=== PATIENT | female | born 1975 | race Caucasian/White ===

== ENCOUNTER 2017-03-25 13:02 | Emergency (ER) | payer OTHER ==
[2017-03-25] MEDS ORDERED: Ondansetron HCl/PF 4 MG/2 ML Vial ONE (15:53)
[2017-03-25] MEDS ORDERED: Acetaminophen 325 MG TAB ONE (15:53)
[2017-03-25 16:24] LABS: #Basophils 0.1 thou/uL (0.0-0.2); #Eosinphils 0.2 thou/uL (0.0-0.7); #Lymphocytes 3.6 thou/uL (1.20-3.40); #Monocytes 0.5 thou/uL (0.11-0.59); #Neutrophils 5.4 thou/uL (1.40-6.50); %Basophils 1.1 % (0.0-1.0); %Eosinophils 2.2 % (0.0-10.0); %Lymphocytes 36.6 % (21.0-51.0); %Monocytes 5.3 % (0.0-10.0); %Neutrophils 54.8 % (42.0-75.0); Hemoglobin 15.4 g/dL (12.0-16.0); Mean Corpuscular HGB CONC 33.4 g/dL (32.0-36.0); Mean Corpuscular Hemoglobin 32.3 pg (27.0-31.0); Mean Corpuscular Volume 96.7 fl (81.0-99.0); Mean Platelet Volume 7.1 fL (7.4-10.4); Platelet Count 278 thou/uL (130-400); RBC Distribution Width 11.6 % (11.5-14.5); Red Blood Cell (RBC) Count 4.75 mill/uL (4.20-5.40); White Blood Cell (WBC) Count 9.8 thou/uL (4.8-10.8)
[2017-03-25 16:34] LABS: Bilirubin Negative (Negative); Blood, Urine Negative (Negative); Clarity TURBID (Clear); Glucose, Urine (Dipstick) Negative (Negative); Leukocyte Moderate (Negative); Nitrite Positive (Negative); Protein, Urine (Dipstick) Negative (Neg-Trace); Specific Gravity, Urine 1.014 (1.002-1.036); pH, Urine 7.5 (5.0-9.0)
[2017-03-25 16:36] LABS: Bacteria/HPF 4+ HPF (None Seen); Hyaline Casts/LPF 0-3 HYALINE CAST LPF (0-3 Hyaline); Pathc Cast-AUWi Flag 0.27 (0-2.49); RBC/HPF 0-3 HPF (0-3)
[2017-03-25 16:47] LABS: ALT (SGPT) 11 U/L (8-55); AST (SGOT) 9 U/L (5-34); Albumin 4.2 g/dL (3.5-5.0); Alkaline Phosphatase 134 U/L (40-150); Anion Gap 15 mmol/L (10-20); BUN (Urea Nitrogen) 9 mg/dL (7.0-18.7); Bilirubin, Total 0.3 mg/dL (0.2-1.2); Calc. Creatinine Clearance 0 mL/min (70-130); Carbon Dioxide 26 mmol/L (22-29); Chloride 106 mmol/L (98-107); Estimated GFR-MDRD 80; Globulin 2.9 g/dL (2.4-3.5); Glucose 86 mg/dL (70-105); Potassium 3.6 mmol/L (3.5-5.1); Protein, Total 7.1 g/dL (6.0-8.3); Sodium 143 mmol/L (136-145)
[2017-03-25 17:23] LABS: Pregnancy Test - Urine (BHCG) Negative (Negative); Pregu Control Background? CLEAR/WHITE (CLR/WHITE); Pregu Control Bar Appear? YES (CONTROL BAR); Specific Gravity 1.014 (1.002-1.036)
[2017-03-25] MEDS ORDERED: cefTRIAXone\\ROCEPHIN 2 GM in Sodium Chloride 0.9% 100 ML IVPB SCH (17:30)
== END 2017-03-25 18:34 | disposition home or self-care (01) ==
LOC: ERS 13:02
DX: N39.0 Urinary tract infection, site not specified (principal); E66.9 Obesity, unspecified; J44.9 Chronic obstructive pulmonary disease, unspecified; G89.29 Other chronic pain; F17.210 Nicotine dependence, cigarettes, uncomplicated
CPT/HCPCS: 80053; 81003; 81015; 81025; 85025; 87077; 87086; 87186; 96361; 96365; 96375; J0696; J2405; J7050

== ENCOUNTER 2017-10-12 13:03 | Inpatient (IN) | payer OTHER ==
[2017-10-12] MEDS ORDERED: Naloxone HCl 0.4 mg/ml Vial ONE (13:09)
[2017-10-12 13:38] LABS: #Basophils 0.1 thou/uL (0.0-0.2); #Eosinphils 0.2 thou/uL (0.0-0.7); #Lymphocytes 2.9 thou/uL (1.20-3.40); #Monocytes 0.8 thou/uL (0.11-0.59); #Neutrophils 5.6 thou/uL (1.40-6.50); %Basophils 0.7 % (0.0-1.0); %Eosinophils 2.4 % (0.0-10.0); %Lymphocytes 30.2 % (21.0-51.0); %Neutrophils 58.8 % (42.0-75.0); Hemoglobin 12.9 g/dL (12.0-16.0); Mean Corpuscular HGB CONC 33.3 g/dL (32.0-36.0); Mean Corpuscular Hemoglobin 30.6 pg (27.0-31.0); Mean Corpuscular Volume 92.1 fL (78.0-98.0); Mean Platelet Volume 6.9 fL (7.4-10.4); Platelet Count 236 thou/uL (130-400); RBC Distribution Width 11.5 % (11.5-14.5); White Blood Cell (WBC) Count 9.5 thou/uL (4.8-10.8)
[2017-10-12 13:47] LABS: Acetaminophen Less than 6.0 mcg/mL (10.0-30.0); Alcohol Less than 10 mg/dL (Less than 10); Salicylate Less than 8.0 mg/dL (15.0-30.0)
[2017-10-12 13:49] LABS: Bilirubin Small (Negative); Blood, Urine Negative (Negative); Clarity CLOUDY (Clear); Glucose, Urine (Dipstick) Negative (Negative); Leukocyte Small (Negative); Nitrite Positive (Negative); Protein, Urine (Dipstick) Trace mg/dL (Neg-Trace); Specific Gravity, Urine 1.034 (1.002-1.036)
[2017-10-12 13:50] LABS: ALT (SGPT) 13 U/L (8-55); AST (SGOT) 8 U/L (5-34); Albumin 3.5 g/dL (3.5-5.0); Alkaline Phosphatase 94 U/L (40-150); Anion Gap 12 mmol/L (10-20); BUN (Urea Nitrogen) 13 mg/dL (7.0-18.7); Bilirubin, Total 0.2 mg/dL (0.2-1.2); CK (CPK) 156 U/L (29-168); Calc. Creatinine Clearance 0 mL/min (70-130); Calcium 8.6 mg/dL (7.8-10.44); Carbon Dioxide 23 mmol/L (22-29); Chloride 108 mmol/L (98-107); Estimated GFR-MDRD 86; Globulin 2.3 g/dL (2.4-3.5); Glucose 106 mg/dL (70-105); Potassium 3.2 mmol/L (3.5-5.1); Protein, Total 5.8 g/dL (6.0-8.3); Sodium 140 mmol/L (136-145)
[2017-10-12 13:52] LABS: Bacteria/HPF 3+ HPF (None Seen); WBC/HPF 21-50 HPF (0-3)
[2017-10-12 13:57] LABS: Pathc Cast-AUWi Flag 9.59 (0-2.49); Pregnancy Test - Urine (BHCG) Negative (Negative); Pregu Control Background? CLEAR/WHITE (CLR/WHITE); Pregu Control Bar Appear? YES (CONTROL BAR); Specific Gravity 1.034 (1.002-1.036)
[2017-10-12 14:00] LABS: Benzodiazepine Screen Detected (NotDetected); Medtox Reader # READER 1; Tricyclic Screen Detected (NotDetected)
[2017-10-12 14:01] LABS: Amphetamine Not Detected (NotDetected); Barbiturates Screen Not Detected (NotDetected); Cocaine Metabolite Screen Not Detected (NotDetected); Medtox Control Line Valid? VALID (VALID); Methadone Not Detected (NotDetected); Methamphetamine Not Detected (NotDetected); Opiate Screen Not Detected (NotDetected); Oxycodone Screen Not Detected (NotDetected); Phencyclidine (PCP) Not Detected (NotDetected); THC/Cannabinoid Screen Not Detected (NotDetected)
[2017-10-12 14:27] LABS: Hyaline Casts/LPF 0-3 HYALINE CAST LPF (0-3 Hyaline); Other Casts/LPF None Seen LPF (0-3 Hyaline); RBC/HPF 0-3 HPF (0-3)
[2017-10-12] MEDS ORDERED: Naloxone HCl 2 mg/2 ml Syringe ONE (15:23)
--- NOTE | 2017-10-12 15:44 | RAD ---
UPRIGHT PORTABLE CHEST ONE VIEW: 10/12/16 HISTORY: 42-year-old female with altered mental status. COMPARISON: 11/18/14. Monitor leads overlie the chest. Heart size is within normal limits. There appears to be some multipl e healed right rib fractures. Arthrosis changes are noted of both shoulders. Biapical pleural thicken ing. Mild linear parenchymal changes in the right lung base. IMPRESSION: Mild vertically oriented linear and parenchymal changes in the right medial lung base, nonspecific. P ossibly some mild subsegmental atelectasis. Evidence for healed right rib fractures. No confluent pne umonia, overt edema, pleural effusion or other acute process. POS: [facility]
--- NOTE | 2017-10-12 15:45 | CT ---
NONCONTRAST CT HEAD 10/12/17 HISTORY: Altered mental status. COMPARISON: 03/29/15. FINDINGS: There is no evidence of an acute infarction, hemorrhage, mass effect, or midline shift. Ventricular s ystem is normal in size, shape and position. There has been no interval change from prior exam. IMPRESSION: No acute intracranial abnormalities demonstrated. POS: [facility]
[2017-10-12] MEDS ORDERED: Sodium Chloride 0.9% 100 ML ONE (17:45)
[2017-10-12] MEDS ORDERED: cefTRIAXone\\ROCEPHIN 2 GM VIAL ONE (17:45)
--- NOTE | 2017-10-12 18:19 | RAD ---
FRONTAL ABDOMINAL RADIOGRAPH 10/12/17 HISTORY: Abdominal pain. Hypotensive. Patient became unresponsive in ambulance. COMPARISON: None available. FINDINGS: There is a nonspecific bowel gas pattern. There is mild elevation of the right hemidiaphragm and the most superior aspect of the right upper quadrant is excluded from view. There is a small amount of re tained fecal material seen throughout the colon. Bowel gas pattern is otherwise nonspecific. No suspi cious calcifications are seen. Osseous structures are intact. IMPRESSION: 1. Nonspecific bowel gas pattern. Small amount of retained fecal material is seen throughout the colon. 2. Elevation right hemidiaphragm. POS: [facility]
--- NOTE | 2017-10-12 18:54 | PDOC.FPRHP ---
- History of Present Illness Chief Complaint: AMS History of Present Illness: This is a 42 yo female with a PMH of generalized seizure disorder, asthma, schizophrenia, bipolar disorder, who presents to the ED via EMS with AMS. EMS report states she was evicted from motel room today by the police. At some point she lost consciousness and was picked up by EMS. In the ED she initially had a GCS of 10 and reported to drop to 7. She also had systolic BPs in the 70s. She was treated with 2L of IVF resuscitation and her BP nahid to 88/48. She was about to get a padgett catheter when she woke up enough to tell the nurse that she was allergic to iodine. - Allergies/Adverse Reactions Allergies Allergy/AdvReac Type Severity Reaction Status Date / Time venom-honey bee Allergy Severe Anaphylaxis Verified 02/01/14 14:30 [bee venom (honey bee)] albuterol Allergy Verified 02/01/14 14:42 aspirin Allergy Verified 02/01/14 14:30 erythromycin lactobionate Allergy Verified 02/01/14 14:30 [From Erythrocin] iodine Allergy Verified 02/01/14 14:30 promethazine HCl Allergy Verified 02/01/14 14:30 [From Phenergan] - Home Medications Medication Instructions Recorded Confirmed Type Benzonatate [Tessalon] 100 mg PO TID PRN 12/27/12 03/29/15 History Methocarbamol [Robaxin] 500 mg PO Q8HR 12/27/12 03/29/15 History Topiramate [Topamax] 200 mg PO BID 12/27/12 03/29/15 History Ziprasidone HCl [Geodon] 80 mg PO HS 12/27/12 03/29/15 History Amitriptyline HCl 50 mg PO BID 02/01/14 03/29/15 History Esomeprazole Magnesium [NexIUM] 40 mg PO DAILY 02/01/14 03/29/15 History Estradiol/Norethindrone Acet 1 tablet PO DAILY 02/01/14 03/29/15 History [Mimvey] Gabapentin 300 mg PO TID 03/29/15 03/29/15 History lamoTRIgine [LaMICtal] 100 mg PO TID 03/29/15 03/29/15 History Levofloxacin [Levaquin] 750 mg PO 0600 7 Days tab 04/01/15 Rx - History PMHx: Schizophrenia, bipolar disorder, generalized seizure disorder, asthma PSHx: Unable to obtain FHx:Unable to obtain Social: Poor living conditions - Review of Systems ROS unobtainable: due to mental status - Vital signs BP: [] HR: [] RR: [] Tmax: [] Pox: []% on [] Wt: [] - Physical Exam -Constitutional: GCS 10-11 5 for pain 4 disoriented 3 opens to voice HEENT: normocephalic and atraumatic, PERRLA -HEENT: poor dention Neck: trachea midline, no JVD Chest: no-tender to palpation, no lesions Heart: RRR, normal S1/S2 Lungs: CTAB, no respiratory distress Abdomen: bowel sounds present -Abdomen: Abdomen was ridged, pt. grimaced with palpation to left side. Musculoskeletal: normal structure Skin: no rash/lesions, capillary refill <2 seconds Heme/Lymphatic: no unusual bruising or bleeding -Psychiatric: unable to obtain FMR H&P: Results - Labs Result Diagrams: 10/12/17 13:33 10/12/17 13:33 Lab results: WBC 9.5 thou/uL (4.8-10.8) 10/12/17 13:33 Hgb 12.9 g/dL (12.0-16.0) 10/12/17 13:33 Hct 38.6 % (36.0-47.0) 10/12/17 13:33 MCV 92.1 fL (78.0-98.0) 10/12/17 13:33 Plt Count 236 thou/uL (130-400) 10/12/17 13:33 Neutrophils % 58.8 % (42.0-75.0) 10/12/17 13:33 Sodium 140 mmol/L (136-145) 10/12/17 13:33 Potassium 3.2 mmol/L (3.5-5.1) L 10/12/17 13:33 Chloride 108 mmol/L (98-107) H 10/12/17 13:33 Carbon Dioxide 23 mmol/L (22-29) 10/12/17 13:33 BUN 13 mg/dL (7.0-18.7) 10/12/17 13:33 Creatinine 0.74 mg/dL (0.6-1.1) 10/12/17 13:33 Glucose 106 mg/dL (70-105) H 10/12/17 13:33 Lactic Acid 2.2 mmol/L (0.5-2.2) 10/12/17 13:18 Calcium 8.6 mg/dL (7.8-10.44) 10/12/17 13:33 Total Bilirubin 0.2 mg/dL (0.2-1.2) 10/12/17 13:33 AST 8 U/L (5-34) 10/12/17 13:33 ALT 13 U/L (8-55) 10/12/17 13:33 Alkaline Phosphatase 94 U/L (40-150) 10/12/17 13:33 Creatine Kinase 156 U/L (29-168) 10/12/17 13:33 Serum Total Protein 5.8 g/dL (6.0-8.3) L 10/12/17 13:33 Albumin 3.5 g/dL (3.5-5.0) 10/12/17 13:33 Urine Ketones Negative mg/dL (Negative) 10/12/17 13:15 Urine Blood Negative (Negative) 10/12/17 13:15 Urine Nitrite Positive (Negative) H 10/12/17 13:15 Ur Leukocyte Esterase Small (Negative) H 10/12/17 13:15 Urine RBC 0-3 HPF (0-3) 10/12/17 13:15 Urine WBC 21-50 HPF (0-3) H 10/12/17 13:15 Ur Squamous Epith Cells 7-10 HPF (0-3) H 10/12/17 13:15 Urine Bacteria 3+ HPF (None Seen) H 10/12/17 13:15 - EKG Interpretation EKG: NSR - Radiology Interpretation Abdominal x-ray Status: report reviewed by me (non specific gas patter, stool though out colon) CT scan - head Status: report reviewed by me (no acute intracranial abnormalities) Chest x-ray Status: report reviewed by me (parenchymal changes to right medial lung base, mild atelectasis, no acute processes) FMR H&P: A/P - Problem List (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 other substance -Monitor repiratory status -Continue GCS checks Hypotension -70-80s systolic blood pressure -Responded some to aggressive IVF resuscitation (3L) -Monitor pressures General seizure disorder -Take history when patient is able Schizophrenia -Take history when patient is able Bipolar disorder -Take history when patient is able Asthma FMR H&P: Upper Level - Pertinent history 42F brought in via EMS for AMS thought to be either from post-ictal state s/p seizure vs toxic ingestion. She received Narcan x 2 and 3L NS from EMS and EDMD. GCS has ranged from 8 to 12 since presentation. UDS positive for benzo's and tricyclics. Patient not able to provide PMH or HPI at this time. All information gathered from ED physician and chart review. Blood pressure transiently low in ED but patient is able to respond appropriately to questions at times. PMH: seizure disorder, chronic back pain, morbid obesity, bipolar disorder, tobacco abuse, HLD - Pertinent findings 94/47 mmHg 52bpm 16RR 100% on 2L 97.4F CV: RRR, no murmurs Pulm: CTA-B Abd: soft; tender to palpation in bilateral lower quadrants; no guarding Extremities: no mottling or lesions GCS: 11 - Plan Date/Time: 10/12/17 334 1. AMS: UDS positive for benzos and TCA. S/p narcan with little effect. Patient is usually responsive to questions and has a current GCS of 11 and is protecting her airway with no need for intubation at this time. We will admit to CCU and monitor vital signs and provide supportive care. 2. Hypotension likely from toxic ingestion: See plan for #1. She is s/p 3L of IVF and is her pressures have remained stable with appropriate MAPs. Continue to monitor per unit protocol with possible central line placement for pressor support if needed. Afebrile on admission with no leukocytosis. 3. Seizure disorder: history of seizures per chart review. Prolactin on admission was normal. No seizure activity in ER. Admit with seizure precautions and monitor while in hospital. 3. Schizophrenia: per chart review she has been on medication for schizophrenia. We will obtain further history when she is able to answer questions. 4. Bipolar DO: further history to be obtained when patient is more awake. I, Braden Zabala, have evaluated this patient and agree with findings/plan as outlined by bakery pastry internship resident. Pertinent changes/additions are listed here. Attending Addendum - Attending Addendum Date/Time: 10/12/172154 I personally evaluated the patient at 1840 in ER and discussed the management with Dr. Chandler/Vj I agree with the History, Examination, Assessment and Plan documented above with any addition or exceptions noted below. Patient is a 42 yo WF who was found down by EMS after apparently being kicked out of her hotel by the police. Exam is by EMS and review of medical record. UDS shows benzos and TCAs. At the time of my exam- HR 59, BP 95/51, O2 sat 100% 2L NC Heart: normal s1/s2 no murmurs Lungs: ctab Abd: soft, nd, +bs, mild ttp suprapubic and LLQ. No rigidity, rebound, or guarding Neuro: GCS 10-12 Labs, imaging and EKG reviewed 1) Hypotension- improved with IVF. ICU monitoring for frequent bp checks 2) AMS- unsure etiology but most likely benzo ingestion. GCS currently 10-12. 3) Bradycardia- review of ER records from 2012 show baseline HR 62-65. Continue supportive care 4) UTI- Rocephin- send urine cx. 5) h/o schizophrenia/bipolar- unsure home meds.
[2017-10-12 19:11] LABS: Lactic Acid 1.5 mmol/L (0.5-2.2)
[2017-10-12] MEDS ORDERED: Ondansetron ODT 4 MG TAB SL PRN (19:40)
[2017-10-12] MEDS ORDERED: Acetaminophen 325 MG TAB PO PRN (19:40)
[2017-10-12] MEDS ORDERED: Ondansetron HCl/PF 4 MG/2 ML Vial IVP PRN (19:40)
[2017-10-12] MEDS ORDERED: Sodium Chloride 0.9% 1,000 ML IV SCH (19:45)
[2017-10-12] MEDS: Sodium Chloride 0.9% 1,000 ML IV SCH (20:33)
[2017-10-12 20:36] VITALS: BMI 33.5
[2017-10-13] MEDS: Sodium Chloride 0.9% 1,000 ML IV SCH ×4 (02:19→23:32)
[2017-10-13 04:30] LABS: ALT (SGPT) 10 U/L (8-55); AST (SGOT) 8 U/L (5-34); Albumin 2.8 g/dL (3.5-5.0); Alkaline Phosphatase 78 U/L (40-150); Anion Gap 11 mmol/L (10-20); BUN (Urea Nitrogen) 9 mg/dL (7.0-18.7); Bilirubin, Total 0.2 mg/dL (0.2-1.2); Calc. Creatinine Clearance 144 mL/min (70-130); Calcium 8.2 mg/dL (7.8-10.44); Carbon Dioxide 21 mmol/L (22-29); Chloride 116 mmol/L (98-107); Estimated GFR-MDRD Greater than 90; Globulin 2.1 g/dL (2.4-3.5); Glucose 87 mg/dL (70-105); Potassium 3.4 mmol/L (3.5-5.1); Protein, Total 4.9 g/dL (6.0-8.3); Sodium 145 mmol/L (136-145)
[2017-10-13 04:56] LABS: Band 4 % (5-11); Hemoglobin 11.4 g/dL (12.0-16.0); Lymphocytes 33 % (21-51); MDiff Complete? YES; Mean Corpuscular HGB CONC 33.4 g/dL (32.0-36.0); Mean Corpuscular Hemoglobin 31.4 pg (27.0-31.0); Mean Corpuscular Volume 93.8 fL (78.0-98.0); Mean Platelet Volume 7.3 fL (7.4-10.4); Monocytes 4 % (0-10); Neutrophil 58 % (42-75); PLT Morphology Comment Appears Adequate; Platelet Count 200 thou/uL (130-400); RBC Distribution Width 11.8 % (11.5-14.5); RBC Morphology Normal; Red Blood Cell (RBC) Count 3.65 mill/uL (4.20-5.40); White Blood Cell (WBC) Count 10.3 thou/uL (4.8-10.8)
[2017-10-13] MEDS: Enoxaparin Sodium 40 MG/0.4 ML SYRINGE SC SCH (07:35)
[2017-10-13] MEDS: Topiramate 100 MG TAB PO SCH ×2 (09:20→20:26)
[2017-10-13] MEDS: Amitriptyline HCl 100 MG TAB PO SCH ×2 (09:21→20:25)
[2017-10-13] MEDS: lamoTRIgine 100 MG TAB PO SCH ×3 (09:21→20:26)
[2017-10-13] MEDS: Gabapentin 300 MG CAP PO SCH ×4 (09:21→20:38)
--- NOTE | 2017-10-13 11:14 | PDOC.FM ---
- Subjective Subjective: Patient more verbal this morning as compared to initial evaluation in the ED. She is anwering yes/no questions but cannot communicate the events leading up to her admission. She cannot give a medical history or medication list at this time. Nursing reports no acute events overnight. Vital signs were stable with appropriate blood pressures. - Objective MAR Reviewed: Yes Vital Signs & Weight: Vital Signs (12 hours) Temp 10/13/17 08:00 98.4 F 10/13/17 04:00 98.6 F 10/13/17 00:00 98.1 F Most Recent Monitor Data Heart Rate from ECG 75 NIBP 118/67 NIBP BP-Mean 79 Respiration from ECG 24 SpO2 97 I&O: 10/12/17 10/13/17 10/14/17 06:59 06:59 06:59 Intake Total 1495 Output Total 275 95 Balance 1220 -95 Result Diagrams: 10/13/17 03:13 10/13/17 03:13 <Braden Zabala - Last Filed: 10/13/17 11:13> - Objective Vital Signs & Weight: Vital Signs (12 hours) Temp Pulse Resp BP Pulse Ox 10/13/17 16:42 98.4 F 66 18 98 10/13/17 16:35 98.4 F 66 18 130/83 98 10/13/17 12:00 98.1 F Most Recent Monitor Data Heart Rate from ECG 60 NIBP 120/75 NIBP BP-Mean 86 Respiration from ECG 21 SpO2 97 I&O: 10/12/17 10/13/17 10/14/17 06:59 06:59 06:59 Intake Total 1495 2198 Output Total 275 615 Balance 1220 1583 Result Diagrams: 10/13/17 03:13 10/13/17 03:13 <Latasha Leon - Last Filed: 10/13/17 21:01> Phys Exam - Physical Examination Constitutional: NAD HEENT: moist MMs Respiratory: no wheezing, no rales Cardiovascular: no significant murmur Gastrointestinal: soft TTP in bilateral lower quadrants; no guarding Musculoskeletal: no edema Deviation from normal: depressed affect; lethargic but A&O x 3 <Braden Zabala - Last Filed: 10/13/17 11:13> Dx/Plan (1) Altered mental status Code(s): R41.82 - ALTERED MENTAL STATUS, UNSPECIFIED Status: Acute QualifierTitle: Coma depth: [place] coma 13-15 Plan: -UDS positive for benzos and TCA on admission; unknown history leading up to EMS arrival but suspected intentional benzodiazepine overdose -s/p narcan in ER with little effect with GCS of 11 upon initial presentation -mentation has improved overnight; expect that she will be able to answer questions and provide a full history by this evening -CBC and CMP normal this morning so likely not metabolic etiology (2) UTI (urinary tract infection) Status: Acute Plan: -UA positive on admission -s/p 2G rocephin in ED; will continue on the floor -likely the source for her diffuse lower quadrant abdominal pain -afebrile overnight with no leukocytosis this AM (3) Bipolar disorder Code(s): F31.9 - BIPOLAR DISORDER, UNSPECIFIED Status: Chronic Plan: -history of bipolar disorder that was being managed at [facility] -resume home medications once appropriate medication reconciliation done (4) Seizure disorder Code(s): G40.909 - EPILEPSY, UNSP, NOT INTRACTABLE, WITHOUT STATUS EPILEPTICUS Status: Chronic Plan: -patient reports that she takes medications for seizures but cannot recall the names of the medications nor can she remember the last time she had a seizure -verify medications once more stable and resume -prolactin normal on admission so likely no seizure preceding ER presentation (5) Schizophrenia Code(s): F20.9 - SCHIZOPHRENIA, UNSPECIFIED Status: Chronic Plan: -again, suspected history but unable to verify at this time -seen at [facility] - Plan Plan: -hemodynamically stable overnight -blood pressures improved as well as pulse -continue Abx for UTI -verify home meds and PMH once she is more alert -transfer to medical floor -cultures pending <Braden Zabala - Last Filed: 10/13/17 11:13> (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 Zabala. I agree with the History, Examination, Assessment and Plan documented above with any addition or exceptions noted below. AMS- resolved- presumed secondary to medication overdose. No sign of seizure like activity reported and normal prolactin level. To floor and continue to ask history. Hypotension- resolved. <Latasha Leon - Last Filed: 10/13/17 21:01>
[2017-10-13] MEDS ORDERED: cefTRIAXone\\ROCEPHIN 1 GM in Sodium Chloride 0.9% 100 ML IVPB SCH (12:00)
--- NOTE | 2017-10-13 17:23 | CON ---
DATE OF CONSULTATION: 10/13/2017 HISTORY OF PRESENT ILLNESS: Once she is recently discharged from the hospital, she comes in after sh e had a seizure activity. She was hypotensive and unresponsive. She denies any alcohol abuse, denies any drug abuse. Does give history of smoking a pack a day. Stuart arently, when she arrived in the ER, she was more responsive. Though was hypotensive, she was given fluids. Unaware of primary care doctor. PAST MEDICAL HISTORY: History of seizure disorders, bipolar disorders, history of asthma, COPD, process machine operator janelle pain, bipolar. PAST SURGICAL HISTORY: Included , hysterectomy. Son was talking to her family by phone. ALLERGIES: ASPIRIN, ALBUTEROL, BEES, DILAUDID, ERYTHROMYCIN, IODINE, TORADOL. MEDICATIONS: List of medicine apparently given includes Lamictal 100, Geodon 80, Topamax 200 b.i.d., Gabapentin 300 three times a day, amitriptyline 50 b.i.d. SOCIAL HISTORY: As noted. Unemployed, disabled. FAMILY HISTORY: Unremarkable. PHYSICAL EXAMINATION: VITAL SIGNS: Pulse 60, blood pressure 116/87, sats are 90 on room air, respiration 21. CHEST: Reveals no wheezing, no crackles. CARDIAC: Normal S1, S2. No gallops. ABDOMEN: Soft. EXTREMITIES: No edema. NEUROLOGIC: Awake, alert, responsive. She is very appropriate. X-RAY FINDINGS: X-ray was normal. LABORATORY DATA: White count 10,000, H&H is 11 and 34, platelet count is 200. Electrolytes are norm al. IMPRESSION: 1. Status post hypotension, improved. 2. History of metabolic encephalopathy. 3. Seizure disorders. 4. Chronic pain. 5. Bipolar. PLAN: She appears to be stable. Diet and home medications initiated. She can be transferred out of the ICU. Pulmonary and critical care will follow at a distance when she is out of the ICU. This is a consultation note of 70 minutes, in which 50% spent in direct patient care.
[2017-10-13] MEDS ORDERED: Benzonatate 100 MG CAP PO PRN (22:46)
[2017-10-14] MEDS: Methocarbamol 500 MG TAB PO SCH ×2 (05:21→14:22)
[2017-10-14] MEDS: Sodium Chloride 0.9% 1,000 ML IV SCH ×2 (05:23→12:38)
[2017-10-14 05:26] LABS: #Basophils 0.1 thou/uL (0.0-0.2); #Eosinphils 0.2 thou/uL (0.0-0.7); #Lymphocytes 3.1 thou/uL (1.20-3.40); #Monocytes 0.8 thou/uL (0.11-0.59); %Basophils 0.6 % (0.0-1.0); %Eosinophils 1.8 % (0.0-10.0); %Lymphocytes 30.4 % (21.0-51.0); %Monocytes 7.4 % (0.0-10.0); %Neutrophils 59.8 % (42.0-75.0); Mean Corpuscular HGB CONC 34.2 g/dL (32.0-36.0); Mean Corpuscular Hemoglobin 31.7 pg (27.0-31.0); Mean Corpuscular Volume 92.6 fL (78.0-98.0); Mean Platelet Volume 6.9 fL (7.4-10.4); Platelet Count 250 thou/uL (130-400); RBC Distribution Width 11.8 % (11.5-14.5); Red Blood Cell (RBC) Count 3.46 mill/uL (4.20-5.40); White Blood Cell (WBC) Count 10.1 thou/uL (4.8-10.8)
[2017-10-14 05:38] LABS: ALT (SGPT) 12 U/L (8-55); AST (SGOT) 10 U/L (5-34); Albumin 2.8 g/dL (3.5-5.0); Alkaline Phosphatase 90 U/L (40-150); Anion Gap 8 mmol/L (10-20); BUN (Urea Nitrogen) 7 mg/dL (7.0-18.7); Bilirubin, Total Less than 0.2 mg/dL (0.2-1.2); Calc. Creatinine Clearance 140 mL/min (70-130); Calcium 8.4 mg/dL (7.8-10.44); Carbon Dioxide 22 mmol/L (22-29); Chloride 116 mmol/L (98-107); Estimated GFR-MDRD Greater than 90; Globulin 2.1 g/dL (2.4-3.5); Glucose 88 mg/dL (70-105); Potassium 3.3 mmol/L (3.5-5.1); Protein, Total 4.9 g/dL (6.0-8.3); Sodium 143 mmol/L (136-145)
[2017-10-14] MEDS: lamoTRIgine 100 MG TAB PO SCH ×2 (08:21→14:22)
[2017-10-14] MEDS: Amitriptyline HCl 100 MG TAB PO SCH (08:21)
[2017-10-14] MEDS: Topiramate 100 MG TAB PO SCH (08:22)
[2017-10-14] MEDS: Gabapentin 300 MG CAP PO SCH ×2 (08:22→14:22)
[2017-10-14] MEDS: Enoxaparin Sodium 40 MG/0.4 ML SYRINGE SC SCH (08:23)
[2017-10-14] MEDS ORDERED: NORETHINDRONE ACET PO SCH (09:00)
[2017-10-14] MEDS ORDERED: ESTRADIOL PO SCH (09:00)
--- NOTE | 2017-10-14 10:15 | PRG ---
DATE OF SERVICE: 10/14/2017 This morning she is awake, alert and responsive. She says she wants her Bailey out. She ate breakfas t. She is trying to ambulate. PHYSICAL EXAMINATION: VITAL SIGNS: Blood pressure is 129/83, sats 100% on room air, respiration 16, temperature 98. CHEST: No crackles or wheezing. CARDIAC: Normal S1, S2. No gallops. ABDOMEN: Soft, no masses. Her lab shows albumin is 2.8, otherwise white count is normal. Electrolytes are normal. IMPRESSION: 1. Status post hypertension. 2. Urinary tract infection. 3. Bipolar disorder. 4. Seizure disorder. PLAN: Pulmonary is going to follow at a distance. Continue present treatment. Switch over to oral antibiotics.
--- NOTE | 2017-10-14 11:26 | PDOC.FM ---
- Subjective Subjective: No acute events overnight. Pt is tolerating diet and A&O X3. She reports she was recently kicked out of the custodial in addition to the hotel she was staying in. She currently has no place to go upon discharge. She denies SI and HI although there is strong suspicion of intent to self harm. She is medically stable for [facility] evaluation and recommendations. - Objective Vital Signs & Weight: Vital Signs (12 hours) Temp Pulse Resp BP Pulse Ox 10/14/17 08:15 98.4 F 69 16 94 L 10/14/17 07:35 98.4 F 69 16 129/83 94 L 10/14/17 01:00 96 Most Recent Monitor Data Heart Rate from ECG 60 NIBP 120/75 NIBP BP-Mean 86 Respiration from ECG 21 SpO2 97 I&O: 10/13/17 10/14/17 10/15/17 06:59 06:59 06:59 Intake Total 1495 4998 Output Total 275 3615 300 Balance 1220 1383 -300 Result Diagrams: 10/14/17 04:58 10/14/17 04:58 <Richard Gipson - Last Filed: 10/14/17 11:24> - Objective Vital Signs & Weight: Vital Signs (12 hours) Temp Pulse Resp BP Pulse Ox 10/14/17 08:15 98.4 F 69 16 94 L 10/14/17 07:35 98.4 F 69 16 129/83 94 L 10/14/17 01:00 96 Most Recent Monitor Data Heart Rate from ECG 60 NIBP 120/75 NIBP BP-Mean 86 Respiration from ECG 21 SpO2 97 I&O: 10/13/17 10/14/17 10/15/17 06:59 06:59 06:59 Intake Total 1495 4998 Output Total 275 3615 300 Balance 1220 1383 -300 Result Diagrams: 10/14/17 04:58 10/14/17 04:58 <Fredi Toth - Last Filed: 10/14/17 11:51> Phys Exam - Physical Examination Constitutional: NAD HEENT: PERRLA, sclera anicteric Neck: no nodes, no JVD Respiratory: no wheezing, no rales, clear to auscultation bilateral Cardiovascular: RRR, no significant murmur, no rub Gastrointestinal: soft, non-tender, no distention Musculoskeletal: no edema, pulses present Neurological: non-focal, moves all 4 limbs Psychiatric: A&O x 3 Skin: no rash, cap refill <2 seconds <Richard Gipson - Last Filed: 10/14/17 11:24> Dx/Plan (1) Bipolar disorder Code(s): F31.9 - BIPOLAR DISORDER, UNSPECIFIED Status: Chronic (2) Schizophrenia Code(s): F20.9 - SCHIZOPHRENIA, UNSPECIFIED Status: Chronic (3) Seizure disorder Code(s): G40.909 - EPILEPSY, UNSP, NOT INTRACTABLE, WITHOUT STATUS EPILEPTICUS Status: Chronic (4) Altered mental status Code(s): R41.82 - ALTERED MENTAL STATUS, UNSPECIFIED Status: Acute QualifierTitle: Coma depth: [place] coma 13-15 - Plan Plan: 1) AMS: resolved, A&O x 3. Basia 2/2 toxic ingestion, [facility] consulted for further evlauation and possible placement - medically cleared. 2) Bipolar: cont home meds 3) Schizophrenia: home meds 4) Seizure disorder: cont home meds <Richard Gipson - Last Filed: 10/14/17 11:24> Attending Addendum - Attending Addendum Date/Time: 10/14/17 1139 I personally evaluated the patient and discussed the management with Dr. Gipson I agree with the History, Examination, Assessment and Plan documented above with any addition or exceptions noted below.Patient vague regarding details of events leading to this admission with concern for intentional self harm. Reported Seizure activity and AMS however prolactin negative would would not support this history. Patient on TCA(amitrityline)denies intentional OD (no pill count to confirm history), no cardiac dysrhythmias noted and no QT prolongation reported. Patient with homeless living status recently lived at the "[place]" then more recently in [facility] until reportedly expelled. Patient c/ o Migraine headache and endorsing opiod use in the past. Patient is alert oriented,VSS medically stable will ask MR evaluation and Social service consultation. <Fredi Toth - Last Filed: 10/14/17 11:51>
[2017-10-14] MEDS ORDERED: Potassium Chloride 20 MEQ TAB PO SCH (11:30)
[2017-10-14] MEDS ORDERED: Ketorolac Tromethamine 30 MG/ML VIAL IVP SCH (11:30)
[2017-10-14] MEDS ORDERED: Cephalexin 250 MG/5 ML Oral Suspension PO SCH (11:31)
[2017-10-14 14:44] VITALS: BP 134/80; TEMP 98.2
--- NOTE | 2017-10-14 15:47 | PQF ---
JESENIA ANGELA NICHOLAS * r [id number] CLINICAL DOCUMENTATION IMPROVEMENT CLARIFICATION FORM: ICD-10 Updated PLEASE DO AN ADDENDUM TO THE PROGRESS NOTE WITH ANY DOCUMENTATION UPDATES OR ADDITIONS AND CARRY THROUGH TO DC SUMMARY. THANK YOU. DATE: 10-14-17 ATTN: DR. MAURICE LIND Please exercise your independent, professional judgment in responding to the clarification form. Clinical indicators are provided on the bottom of this form for your review Please check appropriate box(s): [ ] Encephalopathy: Type: [ ] Acute [ ] Subacute [ ] Chronic Etiology: [ ] Metabolic [ ] Toxic [ ] Drug induced: [ ] Unspecified [ ] Other (please specify) [ ] Transient Alteration of Awareness [ ] Other diagnosis [ ] Unable to determine In addition, please specify: Present on Admission (POA): [ ] Yes [ ] No [ ] Unable to determine For continuity of documentation, please document condition throughout progress notes and discharge summary. Thank You. CLINICAL INDICATORS - SIGNS / SYMPTOMS / LABS H&P: AMS LOST CONSCIOUSNESS W/ GCS OF 10 AND REPORTED TO DROP TO 7 AMS LIKELY D/T BENZOS VS. OTHER SUBSTANCE UDS POSITIVE FOR BENZO'S AND TRICYCLICS RISK FACTORS H&P: HYPOTENSION W/ 3 LNS - SBP 70-80 SCHIZOPHRENIA / BIPOLAR DISORDER TREATMENTS: H&P: 3L IVF FROM EMS AND EDMD NARCAN X 2 FROM EMS THANK YOU, JADYN (This form is maintained as a part of the permanent medical record) 2014 [employer]. All Rights Reserved Jadyn Go RN, BS [email or web address] [employer] [facility]
[2017-10-14] MEDS ORDERED: traZODone HCl 50 MG TAB PO SCH (21:00)
[2017-10-14] MEDS ORDERED: Cephalexin 250 MG CAP PO SCH (21:00)
== END 2017-10-14 15:00 | disposition home or self-care (01) | DRG 918 ==
LOC: ERS 13:03 → CCU 19:11 → T4-B 10-13 16:36
PROVIDERS: ADMIT Family Medicine; ATTEND Family Medicine
DX: T42.4X1A Poisoning by benzodiazepines, accidental (unintentional), initial encounter (principal); Q04.6 Congenital cerebral cysts; N39.0 Urinary tract infection, site not specified; I95.9 Hypotension, unspecified; F31.9 Bipolar disorder, unspecified; R41.82 Altered mental status, unspecified; F20.9 Schizophrenia, unspecified; G40.409 Other generalized epilepsy and epileptic syndromes, not intractable, without status epilepticus; Z59.0 Homelessness; G43.909 Migraine, unspecified, not intractable, without status migrainosus; I10 Essential (primary) hypertension; J44.9 Chronic obstructive pulmonary disease, unspecified; G89.29 Other chronic pain; F12.10 Cannabis abuse, uncomplicated; E66.01 Morbid (severe) obesity due to excess calories; Z68.33 Body mass index [BMI] 33.0-33.9, adult; F17.210 Nicotine dependence, cigarettes, uncomplicated; E78.5 Hyperlipidemia, unspecified; M54.9 Dorsalgia, unspecified; R00.1 Bradycardia, unspecified
CPT/HCPCS: 36415; 36416; 51702; 70450; 71045; 74018; 80053; 80306; 80307; 81003; 81015; 81025; 82550; 83605; 84146; 84443; 85025; 87040; 87077; 87086; 87186; 93005; 94760; 96361; 96365; 96374; 96375; A4216; J0696; J1650; J1885; J2310; J7050

== ENCOUNTER 2017-10-17 22:34 | Emergency (ER) | payer OTHER ==
[2017-10-18] MEDS ORDERED: Acetaminophen 500 MG TAB ONE (03:03)
== END 2017-10-18 04:00 | disposition home or self-care (01) ==
LOC: ERS 22:34
DX: G89.29 Other chronic pain (principal); M54.5 Low back pain; J45.909 Unspecified asthma, uncomplicated; G40.409 Other generalized epilepsy and epileptic syndromes, not intractable, without status epilepticus; F31.9 Bipolar disorder, unspecified; F20.9 Schizophrenia, unspecified; F17.210 Nicotine dependence, cigarettes, uncomplicated; Z87.440 Personal history of urinary (tract) infections; Z87.442 Personal history of urinary calculi
CPT/HCPCS: 99283

== ENCOUNTER 2018-01-13 10:12 | Emergency (ER) | payer OTHER ==
[2018-01-13 10:58] LABS: Bilirubin Moderate (Negative); Blood, Urine Negative (Negative); Clarity CLOUDY (Clear); Glucose, Urine (Dipstick) Negative (Negative); Leukocyte Small (Negative); Nitrite Negative (Negative); Protein, Urine (Dipstick) 30 mg/dL (Neg-Trace); Specific Gravity, Urine 1.028 (1.002-1.036)
[2018-01-13 11:04] LABS: Bacteria/HPF Rare-Few HPF (None Seen); RBC/HPF 0-3 HPF (0-3)
[2018-01-13 11:05] LABS: Pathc Cast-AUWi Flag 14.06 (0-2.49)
[2018-01-13 11:07] LABS: Amphetamine Not Detected (NotDetected); Benzodiazepine Screen Detected (NotDetected); Cocaine Metabolite Screen Not Detected (NotDetected); Medtox Reader # READER 1; Methamphetamine Not Detected (NotDetected); Opiate Screen Not Detected (NotDetected); Phencyclidine (PCP) Not Detected (NotDetected); THC/Cannabinoid Screen Not Detected (NotDetected); Tricyclic Screen Not Detected (NotDetected)
[2018-01-13 11:08] LABS: Barbiturates Screen Not Detected (NotDetected); Medtox Control Line Valid? VALID (VALID); Methadone Not Detected (NotDetected); Oxycodone Screen Not Detected (NotDetected)
[2018-01-13 11:16] LABS: Hyaline Casts/LPF 4-6 HYALINE CAST LPF (0-3 Hyaline); Renal Epithelial None Seen HPF (0-3); Transitional Epithelial 0-3 HPF (0-3)
[2018-01-13 11:23] LABS: #Lymphocytes 1.4 thou/uL (1.20-3.40); #Monocytes 1.3 thou/uL (0.11-0.59); #Neutrophils 6.4 thou/uL (1.40-6.50); %Basophils 0.2 % (0.0-1.0); %Eosinophils 0.3 % (0.0-10.0); %Lymphocytes 15.4 % (21.0-51.0); %Monocytes 14.3 % (0.0-10.0); %Neutrophils 69.9 % (42.0-75.0); Hemoglobin 14.8 g/dL (12.0-16.0); Mean Corpuscular HGB CONC 32.9 g/dL (32.0-36.0); Mean Corpuscular Hemoglobin 30.5 pg (27.0-31.0); Mean Corpuscular Volume 92.6 fL (78.0-98.0); Platelet Count 285 thou/uL (130-400); Red Blood Cell (RBC) Count 4.85 mill/uL (4.20-5.40); White Blood Cell (WBC) Count 9.2 thou/uL (4.8-10.8)
[2018-01-13 11:47] LABS: ALT (SGPT) 27 U/L (8-55); AST (SGOT) 23 U/L (5-34); Acetaminophen Less than 6.0 mcg/mL (10.0-30.0); Albumin 4.3 g/dL (3.5-5.0); Alcohol Less than 10 mg/dL (Less than 10); Alkaline Phosphatase 101 U/L (40-150); Anion Gap 14 mmol/L (10-20); BUN (Urea Nitrogen) 16 mg/dL (7.0-18.7); Bilirubin, Total 0.3 mg/dL (0.2-1.2); CK (CPK) 94 U/L (29-168); Calc. Creatinine Clearance 0 mL/min (70-130); Calcium 9.4 mg/dL (7.8-10.44); Carbon Dioxide 24 mmol/L (22-29); Chloride 105 mmol/L (98-107); Estimated GFR-MDRD 90; Globulin 2.9 g/dL (2.4-3.5); Glucose 106 mg/dL (70-105); Lipase 26 U/L (8-78); Potassium 3.5 mmol/L (3.5-5.1); Protein, Total 7.2 g/dL (6.0-8.3); Salicylate Less than 8.0 mg/dL (15.0-30.0); Sodium 139 mmol/L (136-145)
--- NOTE | 2018-01-13 12:47 | RAD ---
PORTABLE CHEST: Date: 01-13-18 Time: 9:52 a.m. History: Altered mental status. FINDINGS: The heart size is normal. No focal areas of consolidation, pneumothorax, kirt pleural edema or pleur al effusions are seen. IMPRESSION: No radiographic evidence of acute pulmonary process. POS: [facility]
== END 2018-01-13 13:02 | disposition home or self-care (01) ==
LOC: ERS 10:12
DX: F13.90 Sedative, hypnotic, or anxiolytic use, unspecified, uncomplicated (principal); R53.1 Weakness; J45.909 Unspecified asthma, uncomplicated; F31.9 Bipolar disorder, unspecified; F20.9 Schizophrenia, unspecified; F17.200 Nicotine dependence, unspecified, uncomplicated
CPT/HCPCS: 36415; 51701; 71045; 80053; 80306; 80307; 81003; 81015; 82140; 82550; 83690; 84443; 85025; 87086; 96360; A4353